=== PATIENT | male | born 1945 | race African-American/Black ===

== ENCOUNTER → 2016-12-01 | Outpatient (CLI) | payer MEDICARE ==
--- NOTE | ~2016-12-01 | CR169 ---
[facility]. [facility] A Service of [facility] RADIOLOGY TEXT RESULTS PATIENT: TIERRA LEE LOCATION: SRA : 47 UNIT #: [id number] AGE: [address]: Sanju Porras MD SEX: M ORDER DR: [id number] [place] [id number] O MR#: [id number] Acc #: [id number] NAME: TIERRA LEE : 1945 SEX: M STUDY DATE/TIME: 12/01/2016 13:43 UNIT: [facility] ROOM: STUDY DESCRIPTION: CR Knee 2 Views Lt Attending Physician: Sanju Porras M.D. Referring Physician: Sanju Porras M.D. Ordering Physician: Sanju Porars M.D. Primary Care Physician: Homero Vigil M.D. MEDICAL IMAGING REPORT This report is preliminary unless electronic signature is present. EXAM 3 views left knee. INDICATIONS Osteoarthritis of the left knee. Left knee pain. FINDINGS 3 views of the left knee without comparison. There is no acute fracture, dislocation or effusion. There is moderate medial and lateral joint space narrowing. No foreign body. IMPRESSION Moderate arthrosis of the left knee. Dictated by... Mo Portillo M.D. THIS IS AN ELECTRONICALLY VERIFIED REPORT Mo Portillo M.D. at 12/04/2016 8:06 AM SHANTELL/pretty TD: 12/02/2016 02:23 JOB #: [id number] MEDICAL IMAGING REPORT
--- NOTE | ~2016-12-01 | CR170 ---
[facility] A Service of [facility] & [facility] RADIOLOGY TEXT RESULTS PATIENT: TIERRA LEE LOCATION: [facility] : 47 UNIT #: [id number] AGE: [address]: Sanju Porras MD SEX: M ORDER DR: [id number] [place] [id number] O MR#: [id number] Acc #: [id number] NAME: TIERRA LEE : 1945 SEX: M STUDY DATE/TIME: 12/01/2016 13:43 UNIT: [facility] ROOM: STUDY DESCRIPTION: CR Knee 2 Views Rt Attending Physician: Sanju Porras M.D. Referring Physician: Sanju Porras M.D. Ordering Physician: Sanju Porras M.D. Primary Care Physician: Homero Vigil M.D. MEDICAL IMAGING REPORT This report is preliminary unless electronic signature is present. EXAM Right knee INDICATIONS Osteoarthritis of the right knee. 3-year duration. Pain. FINDINGS 3 views of the right knee without comparison. There is no fracture, dislocation or effusion. There is moderate medial joint space narrowing and mild lateral joint space narrowing. IMPRESSION Moderate osteoarthritis of the right knee. Dictated by... Mo Portillo M.D. THIS IS AN ELECTRONICALLY VERIFIED REPORT Mo Portillo M.D. at 12/04/2016 8:06 AM SHANTELL/pretty TD: 12/02/2016 02:20 JOB #: [id number] MEDICAL IMAGING REPORT
== END | disposition home or self-care (01) ==
LOC: SRAD 13:13
DX: M17.0 Bilateral primary osteoarthritis of knee (principal)
CPT/HCPCS: 73560

== ENCOUNTER → 2016-12-01 | Outpatient (CLI) | payer MEDICARE ==
[2016-12-01 13:55] LABS: PROTHROMBIN TIME (PATIENT) 22.6 SECONDS (9.5-12.4)
== END | disposition home or self-care (01) ==
LOC: SLAB 13:11
PROVIDERS: Internal Medicine Cardiovascular Disease
DX: I48.0 Paroxysmal atrial fibrillation (principal)
CPT/HCPCS: 85610

== ENCOUNTER → 2016-12-18 | Outpatient (CLI) | payer MEDICARE ==
[2016-12-18 14:34] LABS: INR 4.4; PROTHROMBIN TIME (PATIENT) 50.7 SECONDS (9.5-12.4)
== END | disposition home or self-care (01) ==
LOC: SLAB 13:46
PROVIDERS: Internal Medicine Cardiovascular Disease
DX: I48.0 Paroxysmal atrial fibrillation (principal)
CPT/HCPCS: 36415; 85610

== ENCOUNTER → 2016-12-22 | Outpatient (CLI) | payer MEDICARE ==
[2016-12-22 15:41] LABS: ALBUMIN SERUM 3.4 g/dL (3.5-5.0); BILIRUBIN,TOTAL 1.1 mg/dL (0.2-2.0); BUN/CREATININE RATIO 19.62; CALCIUM SERUM 10.3 mg/dL (8.4-10.2); CREATININE SERUM 2.7 mg/dL (0.6-1.4); GLOM FILT RATE Estimated 26.5 mL/min (>60); MAGNESIUM 1.9 mg/dL (1.6-3.0); POTASSIUM 4.2 mmol/L (3.5-5.1); PROTEIN TOTAL SERUM 7.9 g/dL (6.0-8.3)
== END | disposition home or self-care (01) ==
LOC: SLAB 15:10
PROVIDERS: Internal Medicine Cardiovascular Disease
DX: E87.6 Hypokalemia (principal)
CPT/HCPCS: 36415; 80053; 83735

== ENCOUNTER → 2017-01-03 | Outpatient (CLI) | payer MEDICARE ==
[2017-01-03 13:26] LABS: INR 2.5
== END | disposition home or self-care (01) ==
LOC: SLAB 12:53
PROVIDERS: Internal Medicine Cardiovascular Disease
DX: I48.0 Paroxysmal atrial fibrillation (principal)
CPT/HCPCS: 36415; 85610

== ENCOUNTER → 2017-01-15 | Outpatient (CLI) | payer MEDICARE ==
[2017-01-15 15:27] LABS: INR 4.4
== END | disposition home or self-care (01) ==
LOC: SLAB 14:49
PROVIDERS: Internal Medicine Cardiovascular Disease
DX: I48.0 Paroxysmal atrial fibrillation (principal)
CPT/HCPCS: 36415; 85610

== ENCOUNTER → 2017-01-15 | Outpatient (CLI) | payer MEDICARE ==
[2017-01-15 15:16] LABS: HEMOGLOBIN 15.6 gm/dL (13.0-16.0); MEAN CELL VOLUME 91.6 FL (83-96); MEAN CORPUSCULAR HEMOGLOBIN 30.4 PG (28-34); MEAN CORPUSCULAR HGB CONC 33.2 g/dL (30-36); MEAN PLATELET VOLUME 8.9 FL (6.5-11.5); RED BLOOD COUNT 5.13 X10e (3.90-5.60); RED CELL DISTRIBUTION WIDTH 16.8 % (11.0-15.5); WHITE BLOOD COUNT 6.1 X10e3 (4.0-10.5)
[2017-01-15 15:34] LABS: GLOM FILT RATE Estimated 23.2 mL/min (>60); PHOSPHOROUS 3.6 mg/dL (2.5-4.6); POTASSIUM 4.6 mmol/L (3.5-5.1)
[2017-01-15 15:38] LABS: URINE APPEARANCE CLEAR; URINE BILIRUBIN NEG (NEG); URINE BLOOD 2+ (NEG); URINE COLOR YELLOW; URINE GLUCOSE NEG (NORM); URINE KETONE NEG (NEG); URINE LEUKOCYTE ESTERASE NEG (NEG); URINE NITRATE NEG (NEG); URINE PROTEIN 3+ (NEG)
[2017-01-15 15:58] LABS: MICRO INDICATED? YES
[2017-01-15 16:12] LABS: URINE BACTERIA NEG (NEG); URINE WBC 0-2 /[HPF] (0-5)
[2017-01-15 16:46] LABS: CREATININE,RANDOM URINE 116 mg/dL; TOTAL PROTEIN,RANDOM URINE 27 mg/dl (<10)
[2017-01-23 07:32] LABS: CALCIUM (PTHINTACT) 10.1 mg/dL (8.6-10.3)
== END | disposition home or self-care (01) ==
LOC: SLAB 14:58
PROVIDERS: Internal Medicine Nephrology
DX: N18.3 Chronic kidney disease, stage 3 (moderate) (principal); N25.81 Secondary hyperparathyroidism of renal origin; E55.9 Vitamin D deficiency, unspecified
CPT/HCPCS: 80048; 81003; 82306; 82310; 82570; 82728; 83540; 83550; 83970; 84100; 84156; 85027

== ENCOUNTER → 2017-02-01 | Outpatient (CLI) | payer MEDICARE ==
[2017-02-01 15:59] LABS: PROTHROMBIN TIME (PATIENT) 34.3 SECONDS (9.5-12.4)
== END | disposition home or self-care (01) ==
LOC: SLAB 15:30
PROVIDERS: Internal Medicine Cardiovascular Disease
DX: I48.0 Paroxysmal atrial fibrillation (principal)
CPT/HCPCS: 36415; 85610

== ENCOUNTER → 2017-02-12 | Outpatient (CLI) | payer MEDICARE ==
[2017-02-12 13:56] LABS: INR 2.2; PROTHROMBIN TIME (PATIENT) 25.2 SECONDS (9.5-12.4)
== END | disposition home or self-care (01) ==
LOC: SLAB 13:22
PROVIDERS: Internal Medicine Cardiovascular Disease
DX: I48.0 Paroxysmal atrial fibrillation (principal)
CPT/HCPCS: 36415; 85610

== ENCOUNTER → 2017-03-05 | Outpatient (CLI) | payer MEDICARE ==
[2017-03-05 15:49] LABS: INR 2.2; PROTHROMBIN TIME (PATIENT) 25.2 SECONDS (9.5-12.4)
== END | disposition home or self-care (01) ==
LOC: SLAB 15:05
PROVIDERS: Internal Medicine Cardiovascular Disease
DX: I48.0 Paroxysmal atrial fibrillation (principal)
CPT/HCPCS: 36415; 85610

== ENCOUNTER → 2017-04-03 | Outpatient (CLI) | payer MEDICARE ==
[2017-04-03 16:24] LABS: INR 2.2; PROTHROMBIN TIME (PATIENT) 24.7 SECONDS (9.5-12.4)
== END | disposition home or self-care (01) ==
LOC: SLAB 15:39
PROVIDERS: Internal Medicine Cardiovascular Disease
DX: Z51.81 Encounter for therapeutic drug level monitoring (principal); I48.0 Paroxysmal atrial fibrillation; Z79.01 Long term (current) use of anticoagulants
CPT/HCPCS: 36415; 85610

== ENCOUNTER → 2017-04-12 | Outpatient (CLI) | payer MEDICARE ==
[2017-04-12 15:30] LABS: INR 1.7
== END | disposition home or self-care (01) ==
LOC: SLAB 14:31
PROVIDERS: Internal Medicine Cardiovascular Disease
DX: I48.0 Paroxysmal atrial fibrillation (principal)
CPT/HCPCS: 36415; 85610

== ENCOUNTER → 2017-04-12 | Outpatient (CLI) | payer MEDICARE ==
[2017-04-12 15:11] LABS: HEMATOCRIT 46.9 % (38.0-50.0); HEMOGLOBIN 15.8 gm/dL (13.0-16.0); MEAN CELL VOLUME 93.8 FL (83-96); MEAN CORPUSCULAR HEMOGLOBIN 31.5 PG (28-34); MEAN CORPUSCULAR HGB CONC 33.6 g/dL (30-36); RED CELL DISTRIBUTION WIDTH 16.6 % (11.0-15.5); WHITE BLOOD COUNT 7.3 X10e3 (4.0-10.5)
[2017-04-12 15:35] LABS: BUN/CREATININE RATIO 21.9; CALCIUM SERUM 9.6 mg/dL (8.4-10.2); CREATININE SERUM 2.1 mg/dL (0.6-1.4); GLOM FILT RATE Estimated 35.6 mL/min (>60); POTASSIUM 3.4 mmol/L (3.5-5.1)
== END | disposition home or self-care (01) ==
LOC: SLAB 14:47
PROVIDERS: Internal Medicine Nephrology
DX: I12.9 Hypertensive chronic kidney disease with stage 1 through stage 4 chronic kidney disease, or unspecified chronic kidney disease (principal); N18.3 Chronic kidney disease, stage 3 (moderate)
CPT/HCPCS: 80048; 85027

== ENCOUNTER → 2017-04-27 | Outpatient (CLI) | payer MEDICARE ==
[2017-04-27 15:10] LABS: INR 3.8
== END | disposition home or self-care (01) ==
LOC: SLAB 14:45
PROVIDERS: Internal Medicine Cardiovascular Disease
DX: Z51.81 Encounter for therapeutic drug level monitoring (principal); I48.0 Paroxysmal atrial fibrillation; Z79.01 Long term (current) use of anticoagulants
CPT/HCPCS: 36415; 85610

== ENCOUNTER → 2017-05-11 | Outpatient (CLI) | payer MEDICARE ==
[2017-05-11 15:16] LABS: INR 1.9; PROTHROMBIN TIME (PATIENT) 21.8 SECONDS (9.5-12.4)
== END | disposition home or self-care (01) ==
LOC: SLAB 14:36
PROVIDERS: Internal Medicine Cardiovascular Disease
DX: Z51.81 Encounter for therapeutic drug level monitoring (principal); I48.0 Paroxysmal atrial fibrillation; Z79.01 Long term (current) use of anticoagulants
CPT/HCPCS: 36415; 85610

== ENCOUNTER → 2017-05-25 | Outpatient (CLI) | payer MEDICARE ==
[2017-05-25 15:36] LABS: INR 2.1; PROTHROMBIN TIME (PATIENT) 23.8 SECONDS (9.5-12.4)
== END | disposition home or self-care (01) ==
LOC: SLAB 14:58
PROVIDERS: Internal Medicine Cardiovascular Disease
DX: Z51.81 Encounter for therapeutic drug level monitoring (principal); I48.0 Paroxysmal atrial fibrillation; Z79.01 Long term (current) use of anticoagulants
CPT/HCPCS: 36415; 85610

== ENCOUNTER → 2017-06-11 | Outpatient (CLI) | payer MEDICARE ==
[2017-06-11 16:26] LABS: INR 2.1; PROTHROMBIN TIME (PATIENT) 24.3 SECONDS (9.5-12.4)
== END | disposition home or self-care (01) ==
LOC: SLAB 14:09
PROVIDERS: Internal Medicine Cardiovascular Disease
DX: Z51.81 Encounter for therapeutic drug level monitoring (principal); I48.0 Paroxysmal atrial fibrillation; Z79.01 Long term (current) use of anticoagulants
CPT/HCPCS: 36415; 85610

== ENCOUNTER → 2017-06-11 | Outpatient (CLI) | payer MEDICARE ==
[2017-06-11 14:41] LABS: BASOPHIL% 0.7 % (0-2.5); EOSINOPHIL# 0.1 X10e3 (0-0.7); EOSINOPHIL% 1.8 % (0.0-7.0); HEMATOCRIT 46.5 % (38.0-50.0); HEMOGLOBIN 15.5 gm/dL (13.0-16.0); LYMPHOCYTE# 1.1 X10e3 (1.0-3.5); LYMPHOCYTE% 17.8 % (17.0-45.0); MEAN CORPUSCULAR HEMOGLOBIN 31.4 PG (28-34); MEAN CORPUSCULAR HGB CONC 33.4 g/dL (30-36); MEAN PLATELET VOLUME 8.6 FL (6.5-11.5); MONOCYTE# 0.5 X10e3 (0-1.0); MONOCYTE% 8.8 % (3.0-12.0); NEUTROPHIL# 4.4 X10e3 (1.5-7.1); NEUTROPHIL% 70.9 % (40-75); PLATELET COUNT 164 X10e3 (140-420); RED BLOOD COUNT 4.95 X10e (3.90-5.60); RED CELL DISTRIBUTION WIDTH 15.2 % (11.0-15.5); WHITE BLOOD COUNT 6.3 X10e3 (4.0-10.5)
[2017-06-11 15:23] LABS: DIFF IND NO
[2017-06-11 16:14] LABS: ALBUMIN SERUM 3.4 g/dL (3.5-5.0); BILIRUBIN,TOTAL 0.6 mg/dL (0.2-2.0); BUN/CREATININE RATIO 15.65; CALCIUM SERUM 9.6 mg/dL (8.4-10.2); CREATININE SERUM 2.3 mg/dL (0.6-1.4); GLOM FILT RATE Estimated 31.9 mL/min (>60); POTASSIUM 3.8 mmol/L (3.5-5.1); PROTEIN TOTAL SERUM 6.6 g/dL (6.0-8.3)
[2017-06-11 16:21] LABS: THYROID STIMULATING HORMONE 1.44 uIU/ml (0.34-5.60)
[2017-06-11 17:41] LABS: PROSTATE SPECIFIC AG SCR 1.54 ng/ml (0.0-4.0)
[2017-06-11 17:49] LABS: FREE THYROXIN (T4) 0.89 ng/dL (0.58-1.64)
[2017-06-13 13:17] LABS: TESTOSTERONE FREE (PNL) 35.4 pg/mL (30.0-135.0)
== END | disposition home or self-care (01) ==
LOC: SLAB 14:12
PROVIDERS: Specialist
DX: E11.65 Type 2 diabetes mellitus with hyperglycemia (principal); I10 Essential (primary) hypertension; E29.1 Testicular hypofunction; E55.9 Vitamin D deficiency, unspecified
CPT/HCPCS: 80053; 80061; 82043; 82306; 83002; 83036; 84402; 84403; 84439; 84443; 84681; 85025; G0103